=== PATIENT | male | born 1975 | race Caucasian/White ===

== ENCOUNTER 2020-07-25 21:25 | Emergency (ER) | payer MEDICARE, MEDICAID ==
[~2020-07-25] VITALS: Ht 177.8 cm; Wt 113.6 kg
[2020-07-26 03:04] VITALS: BP 136/78
== END 2020-07-26 03:52 | disposition home or self-care (01) ==
LOC: EMS 21:25
DX: F20.9 Schizophrenia, unspecified (principal); F17.210 Nicotine dependence, cigarettes, uncomplicated
CPT/HCPCS: Z7502

== ENCOUNTER 2021-02-15 09:28 | Inpatient (IN) | payer MEDICARE, MEDICAID ==
[~2021-02-15] VITALS: Ht 182.9 cm; Wt 75.0 kg
[2021-02-15] MEDS ORDERED: LORazepam 2 MG/ML VIAL ONE (10:51)
[2021-02-15] MEDS ORDERED: DiphenhydrAMINE HCL 50 MG/ML VIAL ONE (10:51)
[2021-02-15] MEDS ORDERED: HALOPERIDOL LACTATE 5 MG/ML VIAL ONE (10:51)
[2021-02-15] MEDS ORDERED: HALOPERIDOL LACTATE 5 MG/ML VIAL IM ONE (11:00)
[2021-02-15] MEDS ORDERED: LORazepam 2 MG/ML VIAL IM ONE (11:00)
[2021-02-15] MEDS ORDERED: DiphenhydrAMINE HCL 50 MG/ML VIAL IM ONE (11:00)
[2021-02-15 14:14] LABS: COVID AG,FIA SOURCE NASOPHARYNGEAL
[2021-02-15] MEDS ORDERED: ZOLPIDEM TARTRATE 10 MG TABLET PO PRN (16:00)
[2021-02-15] MEDS ORDERED: NICOTINE 14 MG/24 HOUR PATCH TD PRN (18:00)
[2021-02-15 18:24] VITALS: BP 104/69
[2021-02-16] MEDS ORDERED: LOPERAMIDE HCL 2 MG CAPSULE PO PRN (05:45)
[2021-02-16] MEDS ORDERED: ACETAMINOPHEN 325 MG TABLET PO PRN (05:45)
[2021-02-16] MEDS ORDERED: IBUPROFEN 600 MG TABLET PO PRN (05:45)
[2021-02-16] MEDS ORDERED: MAG HYDROX/AL HYDROX/SIMETH ES 30 ML SUSPENSION UDCUP PO PRN (05:45)
[2021-02-16] MEDS ORDERED: MAGNESIUM HYDROXIDE SUSPENSION 30 ML UDCUP PO PRN (05:45)
[2021-02-16] MEDS ORDERED: ALBUTEROL SULFATE HFA 90 MCG/PUFF 8 GM INHALER IH PRN (05:45)
[2021-02-16] MEDS ORDERED: CloNIDine HCL 0.1 MG TABLET PO PRN (05:45)
[2021-02-16] MEDS ORDERED: OMEPRAZOLE 20 MG CAPSULE PO PRN (05:45)
[2021-02-16] MEDS ORDERED: DOCUSATE SODIUM 100 MG CAPSULE PO PRN (05:45)
[2021-02-16] MEDS ORDERED: ONDANSETRON HCL 4 MG TABLET PO PRN (05:45)
[2021-02-16] MEDS ORDERED: BACITRACIN 28 GM OINTMENT TP PRN (05:45)
[2021-02-16] MEDS ORDERED: BENZOCAINE/MENTHOL LOZENGE PO PRN (05:45)
[2021-02-16] MEDS ORDERED: PETROLATUM,WHITE 28 GM JELLY TP PRN (05:45)
[2021-02-16] MEDS: LORazepam 2 MG TABLET PO PRN ×2 (08:08→16:06)
[2021-02-16] MEDS: RisperiDONE 3 MG TABLET PO SCH ×2 (08:08→16:05)
[2021-02-16] MEDS: DIVALPROEX SODIUM 500 MG DR TABLET PO SCH ×2 (08:08→16:08)
[2021-02-16 08:23] VITALS: BP 110/64
[2021-02-16] MEDS: HALOPERIDOL 5 MG TABLET PO PRN (16:06)
[2021-02-16 17:07] VITALS: BP 126/70
[2021-02-17] MEDS: RisperiDONE 3 MG TABLET PO SCH ×2 (08:01→17:18)
[2021-02-17] MEDS: LORazepam 2 MG TABLET PO PRN ×2 (08:01→12:25)
[2021-02-17] MEDS: HALOPERIDOL 5 MG TABLET PO PRN ×2 (08:01→12:26)
[2021-02-17] MEDS: DIVALPROEX SODIUM 500 MG DR TABLET PO SCH ×3 (08:01→17:18)
[2021-02-17 08:21] VITALS: BP 136/75
[2021-02-17 16:00] VITALS: BP 118/68
[2021-02-18 08:00] VITALS: BP 134/84
[2021-02-18] MEDS: DIVALPROEX SODIUM 500 MG DR TABLET PO SCH ×3 (08:14→16:14)
[2021-02-18] MEDS: HALOPERIDOL 5 MG TABLET PO PRN ×2 (08:14→12:34)
[2021-02-18] MEDS: RisperiDONE 3 MG TABLET PO SCH ×2 (08:14→16:13)
[2021-02-18] MEDS: LORazepam 2 MG TABLET PO PRN ×2 (08:14→12:34)
[2021-02-19] MEDS: LORazepam 2 MG TABLET PO PRN (07:55)
[2021-02-19] MEDS: DIVALPROEX SODIUM 500 MG DR TABLET PO SCH ×2 (07:56→16:12)
[2021-02-19] MEDS: RisperiDONE 3 MG TABLET PO SCH ×3 (07:56→16:12)
[2021-02-19 08:45] VITALS: BP 125/87
[2021-02-19] MEDS ORDERED: RISP3TAB44 PO (15:51)
[2021-02-19] MEDS ORDERED: DIVA-112 PO (15:51)
[2021-02-19 16:11] VITALS: BP 115/65
== END 2021-02-19 17:30 | disposition home or self-care (01) | DRG 885 ==
LOC: EMS 09:33 → 3EC 16:25
PROVIDERS: ADMIT Psychiatry & Neurology Psychiatry; ATTEND Psychiatry & Neurology Psychiatry
DX: F20.0 Paranoid schizophrenia (principal); R45.850 Homicidal ideations; F17.210 Nicotine dependence, cigarettes, uncomplicated; Z20.822 Contact with and (suspected) exposure to COVID-19; Z59.0 Homelessness; G47.00 Insomnia, unspecified; K59.00 Constipation, unspecified
CPT/HCPCS: 99291; J1200; J1630; J2060